=== PATIENT | male | born 1960 | race African-American/Black ===

== ENCOUNTER 2018-10-04 18:00 | Emergency (ER) | payer OTHER ==
[~2018-10-04] VITALS: Ht 175.3 cm; Wt 90.9 kg
[~2018-10-04 18:00] MED LIST: ATEN-187 PO
[2018-10-04] MEDS ORDERED: BACITRACIN 0.9 GM PACKET OINTMENT TP ONE (19:00)
[2018-10-04] MEDS ORDERED: IBUPROFEN 800 MG TABLET PO ONE (19:00)
[2018-10-04] MEDS ORDERED: POVIDONE-IODINE 10% 15 ML SOLUTION UD TP ONE (19:00)
[2018-10-04 19:35] VITALS: BP 140/84
== END 2018-10-04 19:56 | disposition home or self-care (01) ==
LOC: EMS 18:03
DX: S61.512A Laceration without foreign body of left wrist, initial encounter (principal); K21.9 Gastro-esophageal reflux disease without esophagitis; I10 Essential (primary) hypertension; F17.210 Nicotine dependence, cigarettes, uncomplicated; Z79.899 Other long term (current) drug therapy; W25.XXXA Contact with sharp glass, initial encounter; Y93.89 Activity, other specified; Y92.098 Other place in other non-institutional residence as the place of occurrence of the external cause; Y99.8 Other external cause status
CPT/HCPCS: 99406

== ENCOUNTER → 2018-10-12 | Outpatient (CLI) | payer OTHER | END | disposition home or self-care (01) | LOC: RADMN 08:59 | PROVIDERS: ATTEND Internal Medicine Cardiovascular Disease | DX: I67.2 Cerebral atherosclerosis (principal); I67.82 Cerebral ischemia; I25.9 Chronic ischemic heart disease, unspecified; R01.1 Cardiac murmur, unspecified | CPT/HCPCS: 70450 ==

== ENCOUNTER 2019-01-01 16:11 | Emergency (ER) | payer OTHER ==
[~2019-01-01] VITALS: Ht 177.8 cm; Wt 94.5 kg
[2019-01-01] MEDS ORDERED: ATOR40TA28 PO (16:23)
[2019-01-01] MEDS ORDERED: BACL10TA PO (16:23)
[2019-01-01] MEDS ORDERED: OMEP20 PO (16:23)
[2019-01-01] MEDS ORDERED: ALBU8HFA IH (16:23)
[2019-01-01] MEDS ORDERED: LOSA50TA64 PO (16:23)
[2019-01-01] MEDS ORDERED: OXYC-530 PO (16:23)
[2019-01-01] MEDS ORDERED: GABA-531 PO (16:23)
[2019-01-01 17:30] VITALS: BP 139/81
== END 2019-01-01 17:57 | disposition left against medical advice (07) ==
LOC: EMS 16:11
DX: R06.02 Shortness of breath (principal); J45.909 Unspecified asthma, uncomplicated; I10 Essential (primary) hypertension; K21.9 Gastro-esophageal reflux disease without esophagitis; F17.210 Nicotine dependence, cigarettes, uncomplicated; Z79.899 Other long term (current) drug therapy; Z53.21 Procedure and treatment not carried out due to patient leaving prior to being seen by health care provider